=== PATIENT | female | born 1960 | race Caucasian/White ===

== ENCOUNTER 2021-02-20 19:30 | Emergency (ER) | payer OTHER ==
[2021-02-20] MEDS ORDERED: Ketorolac 15 MG/ML SDV IVPUSH ONE (20:43)
--- NOTE | 2021-02-20 20:45 | EDM.PDOC ---
ED HPI GENERAL MEDICAL PROBLEM - General Chief Complaint: Abdominal Pain Stated Complaint: LEFT SIDE ABD PAIN Time Seen by Provider: 02/20/21 20:35 Source of Information: Reports: Patient History Limitations: Reports: No Limitations - History of Present Illness INITIAL COMMENTS - FREE TEXT/NARRATIVE: Patient is a 60-year-old female presented to emergency room with a chief compl aint of left lower quadrant pain. Patient states the pain started about 1 week ago. Patient states she was sleeping in a hotel bed and [place] and woke up the next morning with this pain. Patient reports the pain was initially in her low back bilaterally with worsening on the left side. However as the week progressed, the pain is radiated down and is primarily in the left lower quadrant. Patient reports pain is severe. She reports being unable to lie on her back secondary to pain. Patient denies any associated fevers, nausea, vomiting, diarrhea, constipation. Patient has no dysuria or hematuria. Patient has a past medical history of appendicitis, rheumatoid arthritis denies history of kidney stone or diverticulitis. Patient took [place] prior to arrival with no relief. Left Lower Abdomen Pain Score (Numeric/FACES): 10 - Related Data Allergies Allergy/AdvReac Type Severity Reaction Status Date / Time No Known Allergies Allergy Verified 02/20/21 19:53 Home Meds: Home Meds Folic Acid 1 tab PO DAILY 02/20/21 [History] Gabapentin [Neurontin] 300 mg PO BEDTIME #10 cap 02/20/21 [Rx] Hydroxychloroquine [Plaquenil] 200 mg PO DAILY 02/20/21 [History] Methotrexate 12.5 mg PO WEEKLY 02/20/21 [History] hydroCHLOROthiazide [Hydrochlorothiazide] 12.5 mg PO DAILY 02/20/21 [History] lisinopriL [Lisinopril] 40 mg PO DAILY 02/20/21 [History] Past Medical History HEENT History: Reports: Impaired Vision Other HEENT History: wears glasess Cardiovascular History: Reports: Hypertension Respiratory History: Reports: Asthma 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: Musculoskeletal History: Reports: Arthritis - Past Surgical History GI Surgical History: Reports: Appendectomy Female Surgical History: Reports: Tubal Ligation Social & Family History - Tobacco Use Tobacco Use Status *Q: Never Tobacco User - Caffeine Use Caffeine Use: Reports: None - Recreational Drug Use Recreational Drug Use: No ED ROS GENERAL - Review of Systems Review Of Systems: See Below Free Text/Narrative/Comment: In addition to that documented in the HPI above, the additional ROS was obtained: Constitutional: Denies fevers or chills Eyes: Denies vision changes ENMT: Denies sore throat CV: Denies chest pain Resp: Denies SOB GI: Denies vomiting or diarrhea : Denies painful urination MSK: Denies recent trauma Skin: Denies new rashes Neuro: Denies new numbness or tingling or weakness Endocrine: Denies unexpected weight loss Heme: Denies bleeding disorders ED EXAM, GI/ABD - Physical Exam Exam: See Below Text/Narrative:: I have reviewed the triage vital signs Const: Well nourished, well developed, appears stated age. Patient pacing around the room mildly uncomfortable in appearance but nontoxic Eyes: Pupils Equal and reactive to light bilaterally, no conjunctival injection HENT: No signs of trauma or swelling, Neck supple without meningismus CV: Regular Rate Rhythm, Warm, well-perfused extremities RESP: Unlabored respiratory effort GI: soft, non-tender, non-distended, no masses MSK: No gross deformities appreciated. No midline thoracic or lumbar spinal tenderness. Skin: Warm, dry. No rashes Neuro: Alert, technical assistance consultant II-XII grossly intact. Sensation and motor function of extremities grossly intact. Psych: Appropriate mood and affect. Course - Vital Signs Last Recorded V/S: Last Vital Signs Temp 36.1 C 02/20/21 19:47 Pulse 82 02/20/21 19:47 Resp 20 02/20/21 19:47 BP 128/86 02/20/21 19:47 Pulse Ox 97 02/20/21 19:47 - Orders/Labs/Meds Orders: Active Orders 24 hr Category Date Time Status Abdomen Pelvis wo Cont [CT] Stat Exams 02/20/21 20:43 Taken Labs: Laboratory Tests 02/20/21 02/20/21 02/20/21 Range/Units 20:25 20:33 20:33 WBC 9.00 (3.98-10.04) K/mm3 RBC 4.68 (3.98-5.22) M/mm3 Hgb 13.7 (11.2-15.7) gm/dl Hct 40.1 (34.1-44.9) % MCV 85.7 (79.4-94.8) fl MCH 29.3 (25.6-32.2) pg MCHC 34.2 (32.2-35.5) g/dl RDW Std Deviation 38.1 (36.4-46.3) fL Plt Count 280 (182-369) K/mm3 MPV 9.6 (9.4-12.3) fl Neut % (Auto) 75.5 H (34.0-71.1) % Lymph % (Auto) 14.2 L (19.3-51.7) % Sebastian % (Auto) 8.8 (4.7-12.5) % Eos % (Auto) 1.1 (0.7-5.8) Baso % (Auto) 0.2 (0.1-1.2) % Neut # (Auto) 6.79 H (1.56-6.13) K/mm3 Lymph # (Auto) 1.28 (1.18-3.74) K/mm3 Sebastian # (Auto) 0.79 H (0.24-0.36) K/mm3 Eos # (Auto) 0.10 (0.04-0.36) K/mm3 Baso # (Auto) 0.02 (0.01-0.08) K/mm3 Sodium 136 (136-145) mEq/L Potassium 4.3 (3.5-5.1) mEq/L Chloride 99 (98-107) mEq/L Carbon Dioxide 31 (21-32) mEq/L Anion Gap 10.3 (5-15) BUN 13 (7-18) mg/dL Creatinine 1.2 H (0.55-1.02) mg/dL Est Cr Clr Drug Dosing 45.98 mL/min Estimated GFR (MDRD) 46 (>60) mL/min BUN/Creatinine Ratio 10.8 L (14-18) Glucose 127 H (70-99) mg/dL Calcium 8.7 (8.5-10.1) mg/dL Total Bilirubin 0.3 (0.2-1.0) mg/dL AST 28 (15-37) U/L ALT 35 (14-59) U/L Alkaline Phosphatase 79 (46-116) U/L Total Protein 6.7 (6.4-8.2) g/dl Albumin 3.7 (3.4-5.0) g/dl Globulin 3.0 gm/dL Albumin/Globulin Ratio 1.2 (1-2) Lipase 65 L (73-393) U/L Urine Color Yellow (Yellow) Urine Appearance Slt cloudy H (Clear) Urine pH 5.0 (5.0-8.0) Ur Specific [place] > or = 1.030 (1.005-1.030) Urine Protein Negative (Negative) Urine Glucose (UA) Negative (Negative) Urine Ketones Trace H (Negative) Urine Occult Blood Trace-intact H (Negative) Urine Nitrite Negative (Negative) Urine Bilirubin Negative (Negative) Urine Urobilinogen 0.2 (0.2-1.0) Ur Leukocyte Esterase Negative (Negative) Urine RBC 0-5 (0-5) /hpf Urine WBC 0-5 (0-5) /hpf Ur Squamous Epith Cells 5-10 H (0-5) /hpf Urine Bacteria Moderate H (FEW) /hpf Urine Mucus Many H (FEW) /hpf Meds: Medications Discontinued Medications Generic Name Dose Route Start Last Admin Trade Name Ciarra PRN Reason Stop Dose Admin Gabapentin 300 mg 02/20/21 22:21 02/20/21 22:45 Gabapentin 300 Mg Cap PO 02/20/21 22:22 300 mg ONETIME ONE Administration Ketorolac Tromethamine 15 mg 02/20/21 20:43 02/20/21 21:13 Ketorolac 15 Mg/Ml Sdv IVPUSH 02/20/21 20:44 15 mg ONETIME ONE Administration Methocarbamol 1,000 mg 02/20/21 20:46 02/20/21 21:42 Methocarbamol 500 Mg Tab PO 02/20/21 20:47 1,000 mg ONETIME ONE Administration Departure - Departure Time of Disposition: 22:24 Disposition: Home, Self-Care 01 Clinical Impression: Low back pain - Discharge Information Prescriptions: Gabapentin [Neurontin] 300 mg PO BEDTIME #10 cap Instructions: Chronic Back Pain, [id number] Referrals: PCP,Not In Area [Primary Care Provider] - Forms: ED Department Discharge Additional Instructions: Please follow-up with primary care in the next several days. Return to the emergency room immediately if you develop any issues with urination, numbness or tingling in your groin or have any other major concerns. Take medication only as directed. You can continue to take Tylenol and ibuprofen as needed. Sepsis Event Note (ED) - Evaluation Sepsis Screening Result: No Definite Risk - Focused Exam Vital Signs: Vital Signs Temp Pulse Resp BP Pulse Ox 02/20/21 19:47 36.1 C 82 20 128/86 97 - My Orders Last 24 Hours: My Active Orders 02/20/21 20:43 Abdomen Pelvis wo Cont [CT] Stat - Assessment/Plan Last 24 Hours: My Active Orders 02/20/21 20:43 Abdomen Pelvis wo Cont [CT] Stat Assessment:: Patient is a 60-year-old female presenting to the emergency room with left lower quadrant abdominal pain. Broad differential diagnosis considered for this patient include diverticulitis, kidney stone, strangulated/incarcerated hernia, cauda equina syndrome. Based on patient's evaluation, laboratory studies and CT performed. CT did not show any acute pathology. Laboratory studies are largely unremarkable. No evidence of infectious process. Unclear as to the etiology of patient's pain at this time. Patient may have radicular type symptoms from nerve issues in her lumbar spine. Patient did not receive any pain relief with the use of Toradol and Robaxin in the emergency room. We did start patient on gabapentin for neuropathic pain. Instructed for follow-up. Return precautions given his usual. Patient agrees with plan of care.
[2021-02-20] MEDS ORDERED: Methocarbamol 500 MG Tab PO ONE (20:46)
[2021-02-20] MEDS ORDERED: Gabapentin 300 MG Cap PO ONE (22:21)
--- NOTE | 2021-02-21 06:17 | CT ---
CT abdomen and pelvis Technique: Multiple axial sections were obtained from above the dome of the diaphragm inferiorly through the pubic symphysis. Intravenous and oral contrast were not utilized. Study has been performed as a ureteral stone protocol. Reconstructed coronal and sagittal images were obtained. Comparison: No prior abdominal imaging is available. Findings: Right and left kidney show no hydronephrosis or mass. Left kidney shows a minimal low density lesion within the lower pole measuring about 3.4 mm most likely representing a small cyst. Ureters show no dilatation. No ureteral calculi are seen. No bladder calculi are seen. Visualized lung bases show nothing acute. Noncontrast appearance of the liver shows no focal abnormality. Spleen size is normal. Adrenal glands show no nodule. Pancreas appears within normal limits. Gallbladder contains no calcified gallstones. Abdominal aorta shows no aneurysm. No retroperitoneal adenopathy or mesenteric abnormalities are seen. Appendix is not visualized with certainty. No pelvic mass or adenopathy is seen. Mild diverticulosis is seen within the sigmoid colon without inflammatory change. Bone window settings were reviewed. Minimal scattered degenerative change is seen within the lumbar spine. No acute osseous abnormality is appreciated. Impression: 1. Small renal cyst. No renal calculi, ureteral dilatation or ureteral stone is seen. 2. Minimal diverticulosis. 3. No acute abnormality is definitely appreciated on noncontrast CT study of the abdomen and pelvis. Diagnostic code #2 I agree with preliminary report from [facility], finalized on 02/20/21, 11:09 PM CDT, code 1
== END 2021-02-20 22:45 | disposition home or self-care (01) ==
LOC: JD.ED 19:30
DX: M54.50 Low back pain, unspecified (principal); I10 Essential (primary) hypertension; J45.909 Unspecified asthma, uncomplicated; Z79.899 Other long term (current) drug therapy
CPT/HCPCS: 36415; 74176; 80053; 81001; 83690; 85025; 96374; 99284; A9270; J1885